=== PATIENT | female | born 2000 | race Caucasian/White ===

== ENCOUNTER 2022-12-28 19:28 | Inpatient (IN) | payer OTHER ==
[2022-12-28] MEDS ORDERED: Lidocaine 1% (PF) 30 ML VIAL SC PRN (20:02)
[2022-12-28] MEDS ORDERED: Misoprostol 200 MCG TAB PR PRN (20:02)
[2022-12-28] MEDS ORDERED: Lactated Ringer's 1,000 ML IV PRN (20:02)
[2022-12-28] MEDS ORDERED: Ondansetron PF 4 MG/2 ML Vial IVP PRN (20:02)
[2022-12-28] MEDS ORDERED: Ibuprofen 800 MG TAB PO PRN (20:02)
[2022-12-28] MEDS ORDERED: hydrALAZINE 20 MG/ML VIAL SLOW IVP PRN (20:02)
[2022-12-28] MEDS ORDERED: fentaNYL 50 mcg/mL 1 mL Vial SLOW IVP PRN (20:02)
[2022-12-28] MEDS ORDERED: Methylergonovine 0.2 MG/ML VIAL IM PRN (20:02)
[2022-12-28] MEDS ORDERED: HYDROcodone/Acetaminophen 5/325 mg Tablet PO PRN ×2 (20:02)
[2022-12-28] MEDS ORDERED: Promethazine HCl 25 MG/ML VIAL IM PRN (20:02)
[2022-12-28] MEDS ORDERED: NS w/ Oxytocin 30 units 500 ML IV SCH (20:15)
[2022-12-28] MEDS ORDERED: Oxytocin 10 UNITS/ML VIAL ONE (22:38)
[2022-12-28 22:54] LABS: Hematocrit 39.5 % (34.9-44.5); Hemoglobin 13.6 g/dL (12.0-15.5); Mean Corpuscular HGB CONC 34.4 g/dL (32.0-36.0); Mean Corpuscular Volume 87.2 fl (81.6-98.3); Mean Platelet Volume 11.6 fl (7.4-10.4); Platelet Count 206 10x3/uL (150-450); RBC Distribution Width 12.6 % (11.5-14.5); Red Blood Cell (RBC) Count 4.53 10x6/uL (3.90-5.03); White Blood Cell (WBC) Count 21.2 10x3/uL (3.5-10.5)
[2022-12-28 23:33] LABS: HBSAg Index 0.16 S/CO (0-0.99); Hep B Surf Ag - L&D Non-Reactive S/CO (NonReactive)
[2022-12-29 00:45] LABS: Syphilis Antibody Nonreactive (Nonreactive); Syphilis Antibody Index 0.05 S/CO (<1.00 Non-Reactive)
[2022-12-29] MEDS ORDERED: Ondansetron PF 4 MG/2 ML Vial IVP PRN (02:19)
[2022-12-29] MEDS ORDERED: HYDROcodone/Acetaminophen 5/325 mg Tablet PO PRN ×2 (02:19)
[2022-12-29] MEDS ORDERED: hydrALAZINE 20 MG/ML VIAL SLOW IVP PRN (02:19)
[2022-12-29] MEDS ORDERED: Bisacodyl 10 MG SUPP PR PRN (02:19)
[2022-12-29] MEDS ORDERED: Benzocaine-Menthol 82.5 ML CAN TOP PRN (02:19)
[2022-12-29] MEDS ORDERED: Milk Of Magnesia 30 ML UDCUP PO PRN (02:19)
[2022-12-29] MEDS ORDERED: Methylergonovine 0.2 MG/ML VIAL IM PRN (02:19)
[2022-12-29] MEDS ORDERED: Misoprostol 200 MCG TAB VAG PRN (02:19)
[2022-12-29] MEDS ORDERED: Boostrix 0.5 ML (Tdap) VIAL (>/=7 yrs of age) IM ONE (02:19)
[2022-12-29] MEDS ORDERED: Lanolin Ointment 7 GM TUBE TOP PRN (02:19)
[2022-12-29] MEDS ORDERED: Ibuprofen 800 MG TAB PO SCH (06:00)
[2022-12-29] MEDS: Prenatal Vitamin 1 TAB PO SCH (08:14)
[2022-12-29] MEDS: Ibuprofen 800 MG TAB PO SCH ×2 (08:15→17:38)
[2022-12-29] MEDS: Docusate 100 MG CAP PO SCH ×2 (08:15→21:25)
[2022-12-29] MEDS: Ferrous Sulfate 325 MG TAB PO SCH ×2 (08:29→16:45)
[2022-12-30] MEDS: Ibuprofen 800 MG TAB PO SCH ×2 (01:59→09:16)
[2022-12-30] MEDS: Ferrous Sulfate 325 MG TAB PO SCH (07:10)
[2022-12-30] MEDS: Docusate 100 MG CAP PO SCH (08:21)
[2022-12-30] MEDS: Prenatal Vitamin 1 TAB PO SCH (08:21)
[2022-12-30 09:15] VITALS: BP 131/65; TEMP 97.9
== END 2022-12-30 14:00 | disposition home or self-care (01) | DRG 807 ==
LOC: CSHLD/OP 19:28 → CSHLD 20:02 → CSHANTE 12-29 03:20
PROVIDERS: ADMIT Obstetrics & Gynecology; ATTEND Obstetrics & Gynecology
PROC: 10E0XZZ Delivery of Products of Conception, External Approach (ICD-10-PCS; principal; 2022-12-29)
PROC: 0KQM0ZZ Repair Perineum Muscle, Open Approach (ICD-10-PCS; 2022-12-29)
DX: O70.1 Second degree perineal laceration during delivery (principal); Z37.0 Single live birth; Z3A.39 39 weeks gestation of pregnancy
CPT/HCPCS: 36415; 85027; 86780; 86850; 86900; 86901; 87340; 99285; J2590